=== PATIENT | female | born 1955 | race Caucasian/White ===

== ENCOUNTER → 2019-06-15 | Outpatient (CLI) | payer OTHER | LOC: RAD 10:53 | DX: J98.11 Atelectasis (principal); R91.8 Other nonspecific abnormal finding of lung field; J98.4 Other disorders of lung ==

== ENCOUNTER → 2019-06-17 | Outpatient (CLI) | payer OTHER ==
[2019-06-17 12:57] LABS: CREATININE 0.7 mg/dL (0.6-1.0)
== END ==
LOC: LABMALL 11:34
PROVIDERS: Internal Medicine
DX: R91.8 Other nonspecific abnormal finding of lung field (principal); J45.40 Moderate persistent asthma, uncomplicated; K44.9 Diaphragmatic hernia without obstruction or gangrene

== ENCOUNTER → 2019-08-09 | Outpatient (CLI) | payer OTHER | LOC: CAT 10:28 | DX: R91.8 Other nonspecific abnormal finding of lung field (principal); K44.9 Diaphragmatic hernia without obstruction or gangrene ==

== ENCOUNTER → 2019-09-28 | Outpatient (CLI) | payer OTHER ==
[~2019-09-28] VITALS: Ht 152.4 cm; Wt 71.2 kg
[~2019-09-28] MED LIST: CALCIUM 500 +1 EACH PO; MONTELUKAST SOD10 MG PO; PROAIR HFA8.5 GM INH; SPIRIVA RESPIMAT4 G1 INH; SYMBICORT160 MCG/4. INH; TUMS200 MG PO; VITAMIN D32000 UNIT PO; ZOCOR20 MG PO
[2019-09-28 07:37] VITALS: BP 140/69
--- NOTE | 2019-09-29 15:07 | PATH ---
[facility] [email or web address] [address] PATHOLOGY RPT PROCEDURE Name: TRISHA ROSENBERG Room #: REG ANAND Rider.#: [id number] Admission: 09/28/19 Date of : 51 Discharge: Report #: [id number] Path Case #: [id number] Note [facility] Accession Number: [id number] TESTS RESULT FLAG UNITS REF RANGE LAB Clinician Provided Cytology Information No. of containers..01 Other (Miscellaneous) Source: RML BRUSHING DIAGNOSIS: RML BRUSHING NEGATIVE FOR MALIGNANT CELLS. REACTIVE BRONCHIAL CELLS ARE PRESENT. PULMONARY MACROPHAGES (DUST CELLS) ARE PRESENT. RED BLOOD CELLS ARE PRESENT. MARKED ACUTE INFLAMMATION IN THE BACKGROUND. Pathologist ICD10: 02 R91.8 Signed out by: 02 Bess Vasquez MD, Pathologist NPI- [id number] Performed by: 01 Fabiola Ledesma, Pump Tester (ASC) FLAG LEGEND: L-Low Normal,H-High Normal,LL-Alert Low,HH-Alert High <-Panic Low,>-Panic High,A-Abnormal,AA-Critical Abnormal Performed at: [address] [place] [address] Robbi Gonsalves MD, [address] [address] Bess Vasquez MD, Performed at: [address], [place], [place] [id number] MD Robbi Gonsalves MD Phone: [phone]
--- NOTE | 2019-10-01 14:07 | PATH ---
[facility] [address] [place] [address] PATHOLOGY RPT PROCEDURE Name: TRISHA ROSENBERG Room #: REG ANAND Rider.#: [id number] Admission: 09/28/19 Date of : 51 Discharge: Report #: [id number] Path Case #: [id number] Note [facility] Accession Number: [id number] TESTS RESULT FLAG UNITS REF RANGE LAB Clinician Provided Cytology Information No. of containers..01 Other (Miscellaneous) Source: RML BAL DIAGNOSIS: RML BAL NEGATIVE FOR MALIGNANT CELLS. NORMAL BRONCHIAL CELLS AND MACROPHAGES ARE PRESENT. PULMONARY MACROPHAGES (DUST CELLS) ARE PRESENT. Pathologist ICD10: 02 R91.8 Signed out by: 02 Bess Vasquez MD, Pathologist NPI- [id number] Performed by: 01 Fabiola Ledesma, Pantry Cook ([facility]) Gross description: 01 25ML, RED, ANNIE /SANDRITA 09/28/2019 1457 Local FLAG LEGEND: L-Low Normal,H-High Normal,LL-Alert Low,HH-Alert High <-Panic Low,>-Panic High,A-Abnormal,AA-Critical Abnormal Performed at: [address] [place] [address] Robbi Gonsalves MD, [address] [address] Bess Vasquez MD, Specimen Comment: A duplicate report has been generated due to demographic updates. Performed at: [address], [place], [place] [id number] MD Robbi Gonsalves MD Phone: [phone]
[2019-10-01 22:09] LABS: ADENOVIRUS Negative (Negative); INFLUENZA A Negative (Negative); INFLUENZA B Negative (Negative); METAPNEUMOVIRUS Negative (Negative); PARAINFLUENZA 1 Negative (Negative); PARAINFLUENZA 2 Negative (Negative); PARAINFLUENZA 3 Negative (Negative); RHINOVIRUS Negative (Negative); RSV A Negative (Negative); RSV B Negative (Negative)
== END | disposition home or self-care (01) ==
LOC: PUL 06:16
PROVIDERS: Pediatrics
DX: J40 Bronchitis, not specified as acute or chronic (principal); B95.61 Methicillin susceptible Staphylococcus aureus infection as the cause of diseases classified elsewhere; R91.8 Other nonspecific abnormal finding of lung field; E78.00 Pure hypercholesterolemia, unspecified; K21.9 Gastro-esophageal reflux disease without esophagitis; Z98.890 Other specified postprocedural states; Z87.891 Personal history of nicotine dependence; Z79.899 Other long term (current) drug therapy
CPT/HCPCS: 70005

== ENCOUNTER → 2019-10-26 | Outpatient (CLI) | payer OTHER | LOC: RAD 11:23 | DX: R91.8 Other nonspecific abnormal finding of lung field (principal); J98.4 Other disorders of lung ==

== ENCOUNTER → 2019-12-27 | Outpatient (CLI) | payer OTHER | LOC: CAT 10:43 | DX: R91.8 Other nonspecific abnormal finding of lung field (principal); J45.40 Moderate persistent asthma, uncomplicated; J47.9 Bronchiectasis, uncomplicated; J98.11 Atelectasis; K76.0 Fatty (change of) liver, not elsewhere classified ==

== ENCOUNTER → 2020-07-17 | Outpatient (CLI) | payer OTHER | LOC: RAD 12:22 | PROVIDERS: ATTEND Internal Medicine | DX: J45.40 Moderate persistent asthma, uncomplicated (principal) ==

== ENCOUNTER → 2020-07-19 | Outpatient (CLI) | payer OTHER ==
[2020-07-19 09:21] LABS: CREATININE 0.7 mg/dL (0.6-1.0)
== END ==
LOC: CAT 08:28
PROVIDERS: ATTEND Internal Medicine
DX: J47.9 Bronchiectasis, uncomplicated (principal); R91.8 Other nonspecific abnormal finding of lung field; K44.9 Diaphragmatic hernia without obstruction or gangrene

== ENCOUNTER → 2020-09-18 | Outpatient (CLI) | payer OTHER | LOC: RAD 12:37 | PROVIDERS: ATTEND Internal Medicine | DX: J45.40 Moderate persistent asthma, uncomplicated (principal) ==

== ENCOUNTER → 2020-11-30 | Outpatient (CLI) | payer OTHER | LOC: LAB 13:28 | PROVIDERS: ATTEND Internal Medicine | DX: Z01.812 Encounter for preprocedural laboratory examination (principal); Z20.822 Contact with and (suspected) exposure to COVID-19 ==

== ENCOUNTER → 2020-12-05 | Outpatient (CLI) | payer OTHER ==
--- NOTE | 2020-12-08 15:42 | MCT ---
[facility] [place] [address] METHACHOLINE CHALLENGE TEST Name: TRISHA ROSENBERG [id number] Admission: 12/05/20 Attend Phys: Matthew Hall MD Discharge: Date of : 51 Report #: [id number] THIS REPORT FOR: //name// Height: in Exam Date: Weight: lbs BTPS: X >> PRE BRONCHODILATOR: PREDICTED BEST %PRED FORCED VITAL CAPACITY (FRC) L LPM % FORCED EXP VOL/SEC (FEV1) L FEV/FVC % MAX MID-EXP FLOW (FEF 25-75) L/SEC L/SEC % PEAK EXP FLOW RATE (FEF MAX) L/MIN L/MIN MED-VC RATIO (FEF 50/FEF 50) .09 Baseline: Phenol Saline Level 1: 0.025 mg/ml BEST %PRED %CHANGE BEST %PRED %CHANGE FVC 2.17 L 89 % % FVC 2.37 L 97 % 9 % FEV1 1.85 L 107 % % FEV1 1.98 L 114 % 7 % Level 2: 0.25 mg/ml Level 3: 2.5 mg/ml BEST %PRED %CHANGE BEST %PRED %CHANGE FVC 2.32 L 95 % 7 % FVC 2.40 L 99 % 11 % FEV1 1.92 L 111 % 3 % FEV1 1.99 L 115 % 7 % . Level 4: 10 mg/ml Level 5: 25 mg/ml BEST %PRED %CHANGE BEST %PRED %CHANGE FVC 2.40 L 98 % 11 % FVC 2.36 L 97 % 8 % FEV1 1.98 L 114 % 7 % FEV1 1.93 L 111 % 4 % Post Bronchodilator: 1st Treatment Post Bronchodilator: 2nd Treatment BEST %PRED %CHANGE BEST %PRED %CHANGE FVC 2.29 L 94 % 5 % FVC L % % FEV1 1.90 L 109 % 2 % FEV1 L % % Post Bronchodilator: 3rd Treatment BEST %PRED %CHANGE FVC L % % FEV1 L % % >> INTERPRETATION: [facility] [address] [place] [address] METHACHOLINE CHALLENGE TEST Name: TRISHA ROSENBERG Room #: REG [facility]#: [id number] Admission: 12/05/20 Attend Phys: Matthew Hall MD Discharge: Date of : 51 Report #: [id number] Premethacholine challenge spirometry was normal. Following administration of methacholine concentration up to level 5, the patient did not exhibit any decrement in the FEV1. Maximum decrement was measured at 7% decrease. Post-MCT spirometry showed flows returning to near baseline. IMPRESSION: Negative methacholine challenge test. <ELECTRONICALLY SIGNED> By: Scooby Murillo MD 12/08/20 1542 MD caroline Jalloh
== END ==
LOC: PUL 08:37
PROVIDERS: ATTEND Internal Medicine
DX: J45.40 Moderate persistent asthma, uncomplicated (principal)

== ENCOUNTER → 2021-07-25 | Outpatient (CLI) | payer OTHER | LOC: RAD 11:55 | PROVIDERS: ATTEND Family Medicine | DX: R06.02 Shortness of breath (principal) ==